=== PATIENT | female | born 2000 | race Caucasian/White ===

== ENCOUNTER 2021-04-02 10:46 | Inpatient (IN) | payer OTHER, SELFPAY ==
[2021-04-02] VITALS (10 sets, daily range): BP systolic 118–135; BP diastolic 78–97; PULSE 112–135; RESP 15–21; TEMP 36.6–37.4; O2SAT 96–100; BMI 25.1; BMI 22.6
--- NOTE | 2021-04-02 10:55 | ED.RN ---
PT REPORTS OF SELF HARM. PT CONFUSED, GIVES ONE WORD ANSWERS, AND THEN CLOSES EYES AND DOES NOT RESPOND. RESPONDS TO NAME CALLING AND STERNAL RUB.
--- NOTE | 2021-04-02 11:10 | EKG12_ITS ---
Test Reason : CONFUSION Blood Pressure : / mmHG Vent. Rate : 115 BPM Atrial Rate : 115 BPM P-R Int : 142 ms QRS Dur : 064 ms QT Int : 346 ms P-R-T Axes : 056 066 007 degrees QTc Int : 478 ms Sinus tachycardia Nonspecific ST abnormality Abnormal ECG Confirmed by MAICO CAPONE, XAVIER ([id number]), map editor MARLENY GAY ([id number]) on 04/05/2021 11:26:05 AM Referred By: SAMMY Confirmed By:XAVIER NINA MD
--- NOTE | 2021-04-02 11:15 | EDS_ITS ---
HPI History of Present Illness Chief Complaint: Confusion Informant: patient and EMS Narrative Narrative: Patient reportedly was found in the bathroom and [facility] by her roommates confused. There was reportedly some shaking activity and they were unsure if this was a potential seizure. Patient is sleepy but will answer some questions at this time. She denies pain at this time. [facility] Medical History Anxiety Back pain Depression Mental health problem Migraine Home Medications albuterol 180 mcg INHALATION Q6H PRN 04/02/21 [History Last Taken Unknown] bupropion HCl [Wellbutrin XL] 150 mg PO DAILY 04/02/21 [History Last Taken Unknown] cyclobenzaprine 5 mg PO TID PRN 04/02/21 [History Last Taken Unknown] doxycycline hyclate 100 mg PO BID 04/02/21 [History Last Taken Unknown] fluoxetine 10 mg PO DAILY 04/02/21 [History Last Taken Unknown] methylphenidate HCl 20 mg PO DAILY 04/02/21 [History Last Taken Unknown] prednisone See Taper PO QODAY 04/02/21 [History Last Taken Unknown] pregabalin 100 mg PO BID 04/02/21 [History Last Taken Unknown] spironolactone 100 mg PO DAILY 04/02/21 [History Last Taken Unknown] Allergy/AdvReac Type Severity Reaction Status Date / Time No Known Allergies Allergy Verified 04/02/21 10:47 Social History Smoking Status: Never smoker ROS ROS ED ROS Narrative Review of systems difficult secondary to patient's mental condition. She denies pain or shortness of breath. Review of Systems ROS Unobtainable: due to mental condition EXAM Physical Exam Const Vital Signs: 04/02/21 10:48 04/02/21 11:57 04/02/21 12:05 Temperature 97.9 F Temperature Source Temporal Pulse Rate 135 H 115 H 117 H Respiratory Rate 18 21 H 16 Blood Pressure 135/94 H 130/97 H 129/94 H Blood Pressure Mean 107 108 105 Pulse Ox 98 99 99 Oxygen Delivery Method Room Air Room Air Room Air Positive well nourished and well developed General Appearance ED: well developed Eyes PERRL and EOMs intact bilaterally Neck no lymphadenopathy and supple Chest Wall inspection of chest normal and palpation of chest normal Resp normal respiratory effort and clear to auscultation bilaterally Cardio regular rhythm Rate: tachycardic GI non-tender Auscultation: hypoactive bowel sounds Palpation: soft Extremity normal to inspection Neuro Sensorium / Orientation: alert Motor Exam: strength 5/5 throughout Skin Skin Narrative: Mild abrasion noted on left knee. MDM MDM MDM Narrative Medical decision making narrative: Lab work, EKG, head CT ordered. Patient given IV fluids and kept on cardiac monitor technician. Shortly after patient's arrival patient's sister who is also a college student arrived at bedside. She brought a bottle of Wellbutrin which has been prescribed to the patient. There were 30 tabs filled on March 22. The bottle was now empty. This was Wellbutrin 150 mg XL tabs. On initial arrival patient had told nursing that she wanted to hurt herself. Lab Data Attestation: I reviewed the patient's lab results. Labs: Laboratory Results - last 24 hr 04/02/21 04/02/21 04/02/21 10:33 10:33 10:33 WBC 16.4 H RBC 4.42 Hgb 13.2 Hct 40.5 MCV 91.6 MCH 29.9 MCHC 32.6 RDW Std Deviation 42.5 RDW Coeff of Lambert 12.8 Plt Count 374 MPV 12.2 H Immature Gran % (Auto) 0.600 Neut % (Auto) 89.1 H Lymph % (Auto) 3.5 L [place] % (Auto) 6.7 Eos % (Auto) 0.0 Baso % (Auto) 0.1 Absolute Neuts (auto) 14.6 H Absolute Lymphs (auto) 0.57 L Nucleated RBC % 0 Sodium 139 Potassium 3.8 Chloride 106 Carbon Dioxide 19.0 L Anion Gap 14 BUN 9 Creatinine 1.11 H Estim Creat Clear Calc 72.14 Est GFR (MDRD) Af Amer 80 Est GFR (MDRD) Non-Af 66 BUN/Creatinine Ratio 8.1 L Glucose 130 H Calcium 9.5 Total Bilirubin 0.30 Direct Bilirubin 0.13 AST 17 ALT 22 Alkaline Phosphatase 61 Total Protein 7.8 Albumin 3.4 Globulin 4.4 H Serum , Qual Ur Drug Screen Comment Ethyl Alcohol 7.0 04/02/21 04/02/21 10:33 11:52 WBC RBC Hgb Hct MCV MCH MCHC RDW Std Deviation RDW Coeff of Lambert Plt Count MPV Immature Gran % (Auto) Neut % (Auto) Lymph % (Auto) [place] % (Auto) Eos % (Auto) Baso % (Auto) Absolute Neuts (auto) Absolute Lymphs (auto) Nucleated RBC % Sodium Potassium Chloride Carbon Dioxide Anion Gap BUN Creatinine Estim Creat Clear Calc Est GFR (MDRD) Af Amer Est GFR (MDRD) Non-Af BUN/Creatinine Ratio Glucose Calcium Total Bilirubin Direct Bilirubin AST ALT Alkaline Phosphatase Total Protein Albumin Globulin Serum , Qual NEGATIVE Ur Drug Screen Comment Ethyl Alcohol Radiography Diagnostic Testing: Clinical Impression(s) from Imaging Studies Brain CT 04/02/21 11:35 IMPRESSION: Normal unenhanced CT scan of the brain. Electronically Signed: Ifeanyi Wallace MD at 11:51 EST , Service support , EKG Initial EKG: Attestation: I personally reviewed and interpreted this EKG as follows: Interpretation: Sinus Tachycardia (Sinus tach at 115. QTc 478.) Treatment and Re-Evaluation Comments:: On repeat examination patient sitting upright in bed. She is more alert than previous exam, however still has slurred speech. Patient does admit to taking Wellbutrin but does not remember when she took the tabs. When asked if this was an attempt to hurt herself she shrugged her shoulders. Test results discussed with patient and sister at bedside. I advised that with her taking the extended release tabs she would need to be monitored for 24 hours for potential seizures. Lyleter is currently at bedside. I will speak with hospitalist for admission. Discharge Plan Triage Chief Complaint: Confusion ED Provider: Marita Bashir Dx/Rx/DC Orders Clinical Impression: Overdose Prescriptions: No Action spironolactone 25 mg Tablet 100 mg PO DAILY RF: 0 prednisone 10 mg Tablets,Dose Pack See Taper mg PO QODAY RF: 0 cyclobenzaprine 5 mg Tablet 5 mg PO TID PRN (Reason: Spasms) RF: 0 bupropion HCl [Wellbutrin XL] 150 mg Tablet Extended Release 24 Hr 150 mg PO DAILY RF: 0 doxycycline hyclate 100 mg Capsule 100 mg PO BID RF: 0 fluoxetine 10 mg Capsule 10 mg PO DAILY RF: 0 methylphenidate HCl 20 mg Capsule,Er Biphasic 50-50 20 mg PO DAILY RF: 0 pregabalin 100 mg Capsule 100 mg PO BID RF: 0 albuterol 90 mcg/actuation Aerosol 180 mcg INHALATION Q6H PRN (Reason: Shortness Of Breath) RF: 0 Primary Care Provider: Prakash Franklin Referrals: Prakash Franklin MD [Primary Care Provider] - Disposition Disposition: Acute Care Hospital [facility]
[2021-04-02 11:25] LABS: Absolute Lymphocyte Count 0.57 X10^3/uL (0.83-4.51); Absolute Neutrophil Count 14.6 X10^3/uL (2.0-7.7); Basophil# 0.01 X10^3/uL; Basophil% 0.1 % (0-1); Hematocrit 40.5 % (37-47); Hemoglobin 13.2 g/dL (12.0-15.0); Lymphocyte # 0.57 X10^3/ul (0.83-4.51); Lymphocyte % 3.5 % (19-41); Mean Corp Hgb Conc 32.6 g/dL (32-36); Mean Corpuscular Hgb 29.9 pg (27.0-32.0); Mean Corpuscular Volume 91.6 fL (81-99); Mean Platelet Vol. 12.2 fl (6.2-12.0); Monocyte% 6.7 % (0-10); NRBC Flagged by Analyzer 0 % (0-5); Neutrophil # 14.62 X10^3/uL (2.7-7.7); Neutrophil % 89.1 % (47-70); POSITIVE DIFFERENTIAL YES; Platelet Count 374 K/mm3 (150-450); RBC Distribution Width CV 12.8 % (11.6-14.6); RBC Distribution Width SD 42.5 fl (35.1-43.9); Red Blood Count 4.42 M/mm3 (4.2-5.4); White Blood Count 16.4 K/mm3 (4.4-11.0)
[2021-04-02 11:27] LABS: Differential Indicated SCAN CRITERIA MET; Internal QC Validated? YES +Cl - CLEAR BKGD; Pregnancy, Serum, hCG Quali. NEGATIVE Negative
--- NOTE | 2021-04-02 11:31 | ED.RN ---
SISTER OF PT AT BEDSIDE REPORTS PT TAKES WELLBUTRIN FOR MENTAL HEALTH AND THAT THE BOTTLE SHE HAD FILLED 03/22/[address] OCONNOR INFORMED.
[2021-04-02 11:33] LABS: AST(SGOT) 17 U/L (15-37); Alanine Aminotransfer ALT/SGPT 22 U/L (13-56); Albumin, Serum 3.4 g/dL (3.2-5.0); Alkaline Phosphatase 61 U/L (45-117); Anion Gap 14 (5-15); BUN 9 mg/dL (7-18); BUN/Creat Ratio 8.1 RATIO (10-20); Bilirubin, Direct 0.13 mg/dL (0.00-0.30); Calcium,Total 9.5 mg/dL (8.5-10.1); Chloride 106 mmol/L (98-107); Creatinine, Serum 1.11 mg/dL (0.55-1.02); EST Glomerular Filtration Rate 66 mL/min (>60); Est Glom Filt Rate - Afr Amer 80 mL/min (>60); Estimated Creatinine Clearance 72.14 ml/min; Globulin 4.4 g/dL (2.2-4.2); Glucose 130 mg/dL (74-106); Potassium 3.8 mmol/L (3.5-5.1); Protein, Total 7.8 g/dL (6.4-8.2); Sodium Level 139 mmol/L (136-145)
[2021-04-02] MEDS: 0.9% Normal Saline 1,000 ML 150 ML IV ×2 (11:34→18:19)
--- NOTE | 2021-04-02 11:35 | CT_ITS ---
STUDY: CT BRAIN WITHOUT CONTRAST REASON FOR EXAM: Female, 21 years old. Confusion RADIATION DOSAGE (If Supplied By Facility): CTDIvol = ( 44.99 ) mGy, DLP = ( 812.98 ) mGycm TECHNIQUE: Transaxial CT imaging of the brain was performed without administration of intravenous contrast material. Individualized dose optimization techniques were used for this CT. COMPARISON: No relevant priors. FINDINGS: Normal soft tissue structures. Normal calvarium. Normal size ventricles and extra-axial spaces for the patient''s age. Normal white matter tracts of the cerebral hemispheres. Normal basal ganglia and thalami. Normal brainstem. Normal cerebellum. There is no intracranial hemorrhage. There are no findings of an acute ischemic infarction. Normal visualized paranasal sinuses. CT/Brain/Head without Contrast IMPRESSION: Normal unenhanced CT scan of the brain. Electronically Signed: Ifeanyi Wallace MD at 11:51 EST , Service support ,
--- NOTE | 2021-04-02 11:49 | CM.ED ---
Addendum entered by Zulma Miramontes 04/02/21 13:52: ROXANNE had difficulty interviewing patient as she was difficult to understand and when asked to clarify appeared agitated. ROXANNE made referral to [facility] for inpatient psych. ROXANNE faxed referral to [facility] Addendum entered by Zulma Miramontes 04/02/21 12:39: SW attempted to speak to patient. Patient was asked what brought her to the hospital. Patient mumbled and this typewriter operator automatic could not understand. Sister appeared to understand and said patient reported bad day and things kept happening. ROXANNE then asked if patient wanted to and she said yes. SW will remain available Zulma BRANDON Original Note: ROXANNE Note ROXANNE was updated by EDITH Alarcon that patient overdosed on Wellbutrin. Patient was in CT but patient's sister, Aubrie, was in the room. Aubrie reports that she got a phone call this morning from the roommates advising of patient's current condition. Aubrie said that patient has been suicidal for a few weeks. She has a therapist via telehealth. Aubrie reports that patient is not giving away items, not researching ways to harm herself or voicing a plan for SI. Aubrie reports no previous psych hospitalization. Aubrie started Wellbutrin the beginning of March as her previous medications weren't working. Prior to that patient was on Prozac. Aubrie reports she is not aware of previous OD. 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 Aubrie reports that patient's coping skills are hanging with friends. Aubrie said that she is not aware of any triggers. Aubrie said that she is aware that patient called her friend last nigh but the friend did not answer. Aubrie reports patient is diagnosed with depression and anxiety. Patient's current medication included Flexeril 5mg 3 times a day, Wellbutrin 150 mg 1x day, Vibra tabs 1 tab, Pregabalin 100 1 cap 2x/day, Prednisone 10 mg, inhaler and over the counter Mucinex cough syrup. Aubrie said that patient had a cough recently. Aubrie said that patient's previous medication was Fluoxetine 10 mg. Zulma BRANDON
[2021-04-02 11:58] LABS: Bacteria 0 SEEN /hpf (None Seen); Mucous, Urine 0 SEEN /hpf (<or=2+); Red Blood Cells-Urine 0 SEEN /hpf (0-5); White Blood Cells 0 SEEN /hpf (0-5)
[2021-04-02 12:11] LABS: Color, Urine Yellow (Yellow); Glucose, Dipstick Normal (Normal); Ketone-Dipstick 5 mg/dl (Negative); Leukocyte Esterase-Dipstick Negative /ul (Negative); Nitrite-Dipstick Negative (Negative); Occult Blood-Urine Negative /ul (Negative); Protein-Dipstick Negative (Negative); Specific Gravity, Urine 1.015 (1.002-1.030); Urine Bilirubin Dipstick Negative (Negative); Urine Clarity Sl. Cloudy (Clear); Urine Urobilinogen Normal (Normal); Urine pH 6.5 (5.0 - 8.0)
[2021-04-02 12:19] LABS: Squamous Epithelial Cells - UA 0-5 SEEN /hpf (5-10)
[2021-04-02 12:28] LABS: Amphetamine Urine VISTA NEGATIVE (<1000 ng/mL); Barbiturate Urine VISTA NEGATIVE (< 200 ng/mL); Benzodiazepine Urine VISTA NEGATIVE (< 200 ng/mL); Cocaine Urine VISTA NEGATIVE (< 300 ng/mL); Ecstacy Urine VISTA POSITIVE (< 500 ng/mL); Methadone Urine VISTA NEGATIVE (< 300 ng/mL); PCP Urine VISTA NEGATIVE (< 25 ng/mL); THC Urine VISTA NEGATIVE (< 50 ng/mL); Vista UDS pH Range 6
--- NOTE | 2021-04-02 14:20 | CM.ED ---
SW Note SW met with patient, her sister and patient's sister got the mother on the phone. Mother said that she is POA. Mother reports that patient has a psychiatrist, Dr. Homa Daly and a therapist (name unknown). Mother said that she called the roommates and they reported that patient was found in the bathroom incoherent and not able to stand. SW updated patient, sister and mother that due to patient's statements to RN and MD after patient is medically cleared she will need to go to a psych hospital. Patient continues to be difficult to understand thus SW did not proceed with interview. RN who took patient to PCU noted that patient was difficult to understand. SW called [facility]. They got referral for patient. They feel that patient is appropriate for their setting. Staff has not staffed it with the MD but will and then call this staff writer back. Plan: Inpatient psych [facility] BRAND[facility]
--- NOTE | 2021-04-02 15:23 | HP.PCM.HOS_ITS ---
Documented by User: Sj JOSHI 04/02/21 15:47 HPI - General General Date of Admission: 04/02/21 HPI Narrative CAR CINTRON is a 21-year-old female who presents to the ED at [facility] on 04/02/2021 after being found in the bathroom at the [facility] by roommates acutely confused and with shaking. History was obtained from family and ED physician's note, as patient is acutely confused and incoherent. Of note, patient was found with a prescription of Wellbutrin 150 mg tablets that was filled with 30 tablets on March 22, and is now empty. On arrival patient told ED nurses that she wanted to hurt her self, patient denies wanting to hurt her self now. Vital signs obtained in the ED are temperature of 98.2 ?F, BP of 132/96, HR 112, RR 16 and is currently satting 100% on room air. CBC does demonstrate a leukocytosis of 16,000, but is otherwise unremarkable. Creatinine slightly elevated at 1.1, otherwise unremarkable. UA is unremarkable. Urine tox screen is positive for MDMA only. Ethyl alcohol 7.0. Brain CT obtained in the ED was unremarkable. [facility] Medical History (Updated 04/02/21 @ 15:33 by Sj JOSHI) Anxiety Back pain Depression Mental health problem Migraine Neuropathy Syrinx of spinal cord Home Medications albuterol 180 mcg INHALATION Q6H PRN 04/02/21 [History Last Taken Unknown] bupropion HCl [Wellbutrin XL] 150 mg PO DAILY 04/02/21 [History Last Taken Unknown] cyclobenzaprine 5 mg PO TID PRN 04/02/21 [History Last Taken Unknown] doxycycline hyclate 100 mg PO BID 04/02/21 [History Last Taken Unknown] methylphenidate HCl 20 mg PO DAILY 04/02/21 [History Last Taken Unknown] prednisone See Taper PO QODAY 04/02/21 [History Last Taken Unknown] pregabalin 100 mg PO BID 04/02/21 [History Last Taken Unknown] spironolactone 100 mg PO DAILY 04/02/21 [History Last Taken Unknown] Allergy/AdvReac Type Severity Reaction Status Date / Time No Known Allergies Allergy Verified 04/02/21 10:47 Family History (Updated 04/02/21 @ 15:34 by Sj JOSHI) Father No problems noted. Mother No problems noted. Social History (Updated 04/02/21 @ 15:36 by Sj JOSHI) Smoking Status: Never smoker alcohol intake: current alcohol intake frequency: a few times a week Alcohol type: wine and hard liquor substance use type: does not use ROS Review of Systems ROS Unobtainable: due to encephalopathy and due to mental status Vital Signs Vital Signs Vital Signs: 04/02/21 10:48 04/02/21 11:57 04/02/21 12:05 Temperature 97.9 F Temperature Source Temporal Pulse Rate 135 H 115 H 117 H Respiratory Rate 18 21 H 16 Blood Pressure 135/94 H 130/97 H 129/94 H Blood Pressure Mean 107 108 105 Blood Pressure Source Blood Pressure Position Blood Pressure Location Pulse Ox 98 99 99 Oxygen Delivery Method Room Air Room Air Room Air 04/02/21 12:56 04/02/21 14:30 Temperature 97.9 F 98.2 F Temperature Source Temporal Oral Pulse Rate 114 H 112 H Respiratory Rate 15 16 Blood Pressure 118/84 H 132/96 H Blood Pressure Mean 95 108 Blood Pressure Source Monitor Blood Pressure Position Semi-Fowlers Blood Pressure Location Left Arm Pulse Ox 100 100 Oxygen Delivery Method Room Air Room Air Weight Weight: 148 lb 12.992 oz Body Mass Index (BMI) 22.6 Physical Exam Const alert and no apparent distress Constitutional Narrative: Alert and oriented to self, acutely confused due to Wellbutrin overdose. General Appearance: cooperative HEENT normocephalic, head/scalp atraumatic and hearing grossly normal bilaterally Eyes PERRL, EOMs intact bilaterally and conjunctivae normal Neck no lymphadenopathy, supple and no JVD Resp normal respiratory effort, no retractions, no use of accessory muscles and clear to auscultation bilaterally Cardio no murmurs and no JVD Rate: tachycardic GI normal to inspection, nondistended, normoactive bowel sounds, soft to palpation and non-tender Extremity normal to inspection, full ROM and no clubbing, cyanosis or edema Skin no rashes or lesions noted, no wounds, skin turgor normal and no jaundice Neuro CN's II-XII intact bilaterally Psych affect normal Results Lab / Micro Data Result Diagrams: 04/02/21 10:33 04/02/21 10:33 Labs: Laboratory Results - last 24 hr 04/02/21 10:33: WBC 16.4 H, RBC 4.42, Hgb 13.2, Hct 40.5, MCV 91.6, MCH 29.9, MCHC 32.6, RDW Std Deviation 42.5, RDW Coeff of Lambert 12.8, Plt Count 374, MPV 12.2 H, Immature Gran % (Auto) 0.600, Neut % (Auto) 89.1 H, Lymph % (Auto) 3.5 L , [place] % (Auto) 6.7, Eos % (Auto) 0.0, Baso % (Auto) 0.1, Absolute Neuts (auto) 14.6 H, Absolute Lymphs (auto) 0.57 L, Nucleated RBC % 0 04/02/21 10:33: Sodium 139, Potassium 3.8, Chloride 106, Carbon Dioxide 19.0 L, Anion Gap 14, BUN 9, Creatinine 1.11 H, Estim Creat Clear Calc 72.14, Est GFR (MDRD) Af Amer 80, Est GFR (MDRD) Non-Af 66, BUN/Creatinine Ratio 8.1 L, Glucose 130 H, Calcium 9.5, Total Bilirubin 0.30, Direct Bilirubin 0.13, AST 17, ALT 22, Alkaline Phosphatase 61, Total Protein 7.8, Albumin 3.4, Globulin 4.4 H 04/02/21 10:33: Ethyl Alcohol 7.0 04/02/21 10:33: Serum , Qual NEGATIVE 04/02/21 11:52: Urine Color Yellow, Urine Clarity Sl. Cloudy, Urine pH 6.5, Ur Specific [place] 1.015, Urine Protein Negative, Urine Glucose (UA) Normal, Urine Ketones 5 H, Urine Occult Blood Negative, Urine Nitrite Negative, Urine Bi lirubin Negative, Urine Urobilinogen Normal, Ur Leukocyte Esterase Negative, Urine RBC 0 SEEN, Urine WBC 0 SEEN, Ur Squamous Epith Cells 0-5 SEEN, Urine Bacteria 0 SEEN, Urine Mucus 0 SEEN 04/02/21 11:52: Urine Opiates Screen NEGATIVE, Urine Methadone Screen NEGATIVE, Ur Barbiturates Screen NEGATIVE, Ur Phencyclidine Scrn NEGATIVE, Ur Amphetamines Screen NEGATIVE, U Methamphetamin-MDMA POSITIVE H, U Benzodiazepines Scrn NEGATIVE, Urine Cocaine Screen NEGATIVE, U Cannabinoids Screen NEGATIVE, Ur Drug Screen Comment Micro: Microbiology 04/02/21 11:25 Nasal Secretion SARS-CoV-2 Antigen (Rapid) - Final Radiology Impression Brain CT 04/02/21 11:35 IMPRESSION: Normal unenhanced CT scan of the brain. Electronically Signed: Ifeanyi Wallace MD at 11:51 EST , Service support , Assessment & Plan Assessment/Plan (1) Overdose: PLAN: Patient is a 21-year-old female who presents the ED at [facility] on 04/02/2021 with a chief complaint of Wellbutrin overdose. Patient will be admitted for medical stabilization and awaiting transfer to inpatient psychiatric facility. 1) overdose Patient was found by her roommate on the floor shaking and presented to the ED with a bottle of Wellbutrin that was prescribed on 22 March and is now empty. It is suspected that patient ingested all the pills in the bottle in an attempt to overdose. Patient did voice to the nurses in the ED that she wished to herself, however denies any thoughts of hurting herself now. It is difficult to assess patient status as she is acutely confused and slightly sedated secondary to overdose. Vital signs are tachycardic, otherwise stable. CBC and BMP are unremarkable. UA is unremarkable. Urine tox being positive for MDMA, other substances negative. Brain CT unremarkable. Plan; admit to PCU for cardiac monitoring, referral to inpatient psychiatric facility initiated in the ED, CBC and CMP in a.m., magnesium ordered, twelve-lead EKG ordered, as needed medications ordered, case management following, hold home Wellbutrin and other antidepressants. 2) tachycardia Likely reactionary secondary to overdose, admit to PCU for cardiac telemetry monitoring, EKG ordered, magnesium level ordered. DVT prophylaxis - not indicated Patient seen by Sj Lynn PA-C, under the supervision of Dr. Myers. Documented by User: Dr. Siri Myers MD 04/02/21 18:36 HPI - General General Date of Admission: 04/02/21 [facility] Medical History (Updated 04/02/21 @ 15:33 by Sj JOSHI) Anxiety Back pain Depression Mental health problem Migraine Neuropathy Syrinx of spinal cord Home Medications albuterol 180 mcg INHALATION Q6H PRN 04/02/21 [History Last Taken Unknown] bupropion HCl [Wellbutrin XL] 150 mg PO DAILY 04/02/21 [History Last Taken Unknown] cyclobenzaprine 5 mg PO TID PRN 04/02/21 [History Last Taken Unknown] doxycycline hyclate 100 mg PO BID 04/02/21 [History Last Taken Unknown] methylphenidate HCl 20 mg PO DAILY 04/02/21 [History Last Taken Unknown] prednisone See Taper PO QODAY 04/02/21 [History Last Taken Unknown] pregabalin 100 mg PO BID 04/02/21 [History Last Taken Unknown] spironolactone 100 mg PO DAILY 04/02/21 [History Last Taken Unknown] Allergy/AdvReac Type Severity Reaction Status Date / Time No Known Allergies Allergy Verified 04/02/21 10:47 Family History (Updated 04/02/21 @ 15:34 by Sj JOSHI) Father No problems noted. Mother No problems noted. Social History (Updated 04/02/21 @ 15:36 by Sj JOSHI) Smoking Status: Never smoker alcohol intake: current alcohol intake frequency: a few times a week Alcohol type: wine and hard liquor substance use type: does not use Results Lab / Micro Data Result Diagrams: 04/02/21 10:33 04/02/21 10:33 Charges/Coding Addendum Addendum: This patient was seen in conjunction with MADELYN Reno. I have independently interviewed and examined the patient and reviewed pertinent historical, laboratory, and other data. Please refer to MADELYN Reno's note for his patient's presentation, findings, and recommendations. I have reviewed and his note and concur with his documentation 21-year-old female who was brought in confused and shaking and found to have an empty bupropion bottle. Patient has a history of suicidal ideation. She stated that she did not want to hurt herself. She usually follows up with a counselor. She has history of schizophrenia according to the sister at bedside. The time of being seen, patient is actively hallucinating; visual and auditory Sister denies that patient is on any chronic psych medications Physical Exam: Gen: Appears anxious, not pale, not jaundiced CVS:HS I +II, regular, no murmurs RESP: Diminished at lung bases GI: BS present and normal, soft, nontender, no palpable organs EXT:No edema ASSESSMENT: 1. Acute toxic encephalopathy 2. Bupropion overdose 3. Acute psychosis in a patient with underlying history of schizophrenia Plan: Admit to PCU for monitoring Repeat EKG to monitor QTC Seizure precaution IV Ativan as needed Sitter at bedside Crisis consult when stable Visit Charges Inpatient E&M: 33102 Init Hosp L3
--- NOTE | 2021-04-02 15:25 | EKG12_ITS ---
Test Reason : QT SHORTENING Blood Pressure : / mmHG Vent. Rate : 110 BPM Atrial Rate : 110 BPM P-R Int : 116 ms QRS Dur : 076 ms QT Int : 350 ms P-R-T Axes : 059 050 014 degrees QTc Int : 473 ms Sinus tachycardia Otherwise normal ECG When compared with ECG of 03-APR-2021 10:17, MANUAL COMPARISON REQUIRED, DATA IS UNCONFIRMED Confirmed by MAICO CAPONE, XAVIER ([id number]), assistant editor MARLENY GAY ([id number]) on 04/06/2021 11:27:20 AM Referred By: RYLEE Confirmed By:XAVIER NINA MD
[2021-04-02 16:42] LABS: Magnesium 2.4 mg/dL (1.6-2.6)
--- NOTE | 2021-04-02 16:44 | CM.ED ---
ROXANNE Note SW went to patient's room. Patient and her sister were in the room. Mother is 2 hours away. ROXANNE introduced self again. ROXANNE advised patient got medication beginning on the and there were no pills in the bottle when she came to the ED so we suspect she ingested 18-19 pills. SW asked when she last took her pills and said was it yesterday or today and patient said neither of those days and then talked about the backyard. Sister asked patient if she knew where she was and she said no. ROXANNE provided pamphlet on [facility]. Plan: Inpatient psych Zulma BRANDON
[2021-04-02] MEDS: 0.9% Saline Lock 10 ML Syringe IV (19:08)
[2021-04-02] MEDS: LORazepam 2 MG/ML Syringe IV (19:08)
[2021-04-03] VITALS (8 sets, daily range): BP systolic 113–130; BP diastolic 82–85; PULSE 91–117; RESP 16–18; TEMP 36.7–37.1; O2SAT 98–100
--- NOTE | 2021-04-03 01:17 | NURSING ---
23:30 RESPIRATORY CARE PRACTITIONER put patient on the bedpan and no urination mother at bedside. 00:15 Mother notified this nurse that patient has not urinated for 12 hours now. So this nurse and the RESPIRATORY CARE PRACTITIONER tried assisting patient to the BSC a couple of times before actually being able to get patient to stand. Once we were able to get patient to stand she would not bend her knees to seat on the BSC. The nurse and fiber drier operator were able to get patient back in the bed and at 00:35 I bladder scanned patient for 857 and explained this to mother while at bedside. I explained that I could get a order to straight cath patient but mother stated, patient has had trauma and would not like to cause anymore trauma straight cath her at this time. Per mother IV fluids on hold and will continue to monitor patient. steel division supervisor Sima was at the bedside while trying some of these interventions to get patient to urinate and explaining to straight cath or allow patient to natural urinate on her own. Mother at patient bedside with lights off at this time.
--- NOTE | 2021-04-03 02:35 | PCS.PANDOC ---
PANDEMIC DOCUMENTATION INITIATED: Date: 01/04/2021 Time: 190
[2021-04-03] MEDS: 0.9% Normal Saline 1,000 ML 150 ML IV ×2 (04:06→13:44)
--- NOTE | 2021-04-03 04:26 | NURSING ---
4:00 This asked patient if she had to urinate patient stated,yes. The sitter and I assisted patient from bed to the toilet and patient sat on the toilet with one crossed under buttock. Patient sat on the toilet and did not urinated at this time. Will try again in about an hour to see if patient would like to get up and urinate again. Mother by patient side while attempting to get patient to urinate.
--- NOTE | 2021-04-03 05:58 | NURSING ---
5:15 Nurse, sitter, and mom assisted patient to the toilet and patient did urinate a large amount. Patient was wiped with wipes and gown and pants were put on during this time. Patient back in bed resting with mom at bedside.
--- NOTE | 2021-04-03 08:22 | EKG12_ITS ---
Test Reason : TACHYCARDIA/ROUTINE Blood Pressure : / mmHG Vent. Rate : 118 BPM Atrial Rate : 118 BPM P-R Int : 130 ms QRS Dur : 072 ms QT Int : 342 ms P-R-T Axes : 057 041 016 degrees QTc Int : 479 ms Sinus tachycardia Otherwise normal ECG When compared with ECG of 02-APR-2021 15:43, MANUAL COMPARISON REQUIRED, DATA IS UNCONFIRMED Confirmed by MAICO CAPONE, XAVIER ([id number]), content editor MARLENY GAY ([id number]) on 04/06/2021 11:28:01 AM Referred By: RYLEE Confirmed By:XAIVER NINA MD
[2021-04-03 08:44] LABS: Absolute Lymphocyte Count 1.15 X10^3/uL (0.83-4.51); Absolute Neutrophil Count 8.7 X10^3/uL (2.0-7.7); Basophil# 0.03 X10^3/uL; Basophil% 0.3 % (0-1); Eosinophil# 0.01 X10^3/uL; Eosinophils% 0.1 % (0-5); Hematocrit 35.3 % (37-47); Hemoglobin 11.5 g/dL (12.0-15.0); Lymphocyte # 1.15 X10^3/ul (0.83-4.51); Lymphocyte % 10.6 % (19-41); Mean Corp Hgb Conc 32.6 g/dL (32-36); Mean Corpuscular Hgb 30.1 pg (27.0-32.0); Mean Corpuscular Volume 92.4 fL (81-99); Mean Platelet Vol. 11.7 fl (6.2-12.0); Monocyte# 0.87 X10^3/uL; NRBC Flagged by Analyzer 0 % (0-5); Neutrophil # 8.72 X10^3/uL (2.7-7.7); Neutrophil % 80.6 % (47-70); Platelet Count 295 K/mm3 (150-450); RBC Distribution Width SD 43.5 fl (35.1-43.9); Red Blood Count 3.82 M/mm3 (4.2-5.4); White Blood Count 10.8 K/mm3 (4.4-11.0)
[2021-04-03 09:11] LABS: ALB/GLOB Ratio 0.8 RATIO (0.9-2.4); AST(SGOT) 20 U/L (15-37); Alanine Aminotransfer ALT/SGPT 20 U/L (13-56); Albumin, Serum 2.8 g/dL (3.2-5.0); Alkaline Phosphatase 48 U/L (45-117); Anion Gap 3 (5-15); BUN 6 mg/dL (7-18); BUN/Creat Ratio 8.6 RATIO (10-20); Calcium,Total 8.7 mg/dL (8.5-10.1); Chloride 109 mmol/L (98-107); EST Glomerular Filtration Rate 112 mL/min (>60); Est Glom Filt Rate - Afr Amer 136 mL/min (>60); Estimated Creatinine Clearance 128.24 ml/min; Globulin 3.7 g/dL (2.2-4.2); Glucose 98 mg/dL (74-106); Protein, Total 6.5 g/dL (6.4-8.2); Sodium Level 138 mmol/L (136-145)
[2021-04-03] MEDS: LORazepam 2 MG/ML Syringe IV (10:59)
--- NOTE | 2021-04-03 11:00 | NURSING ---
ativan 2mg given, sister at bedside and aware of medication administration, sister states she will relay medication administration to mother who is at work.
[2021-04-03] MEDS: Ziprasidone HCl 20 MG Capsule PO (13:02)
--- NOTE | 2021-04-03 13:05 | NURSING ---
Kim 20mg x1 given, sister at bedside and aware, will relay information to mother who is at work.
--- NOTE | 2021-04-03 13:28 | PCM.DC ---
Discharge Instructions Diet Discharge Diet: No restrictions Activity Discharge Activity: Return to Normal Activity Weight Bearing Status: Weight bearing as tolerated Dressing / Incision Call your doctor if you observe: Fever of 101 or Higher, Numbness or Tingling, Shortness of breath, Dizziness, Chest pain, Increased palpitations (irregular heartbeat) and Calf discomfort Follow Up Care Please Follow Up With: Primary care provider When: Within the next two weeks. Test Results: Test results from this visit will be discussed in further detail at your follow-up appointment, if applicable. Discharge Plan Admission Admit Date/Time: 04/02/21 12:29 Primary Reason for Your Visit: Wellbutrin overdose. Attending Provider: Siri Myers Primary Care Provider: Prakash Franklin Discharge Orders/Prescriptions Prescriptions: Continued spironolactone 25 mg Tablet 100 mg PO DAILY RF: 0 prednisone 10 mg Tablets,Dose Pack See Taper mg PO QODAY RF: 0 cyclobenzaprine 5 mg Tablet 5 mg PO TID PRN (Reason: Spasms) RF: 0 doxycycline hyclate 100 mg Capsule 100 mg PO BID RF: 0 methylphenidate HCl 20 mg Capsule,Er Biphasic 50-50 20 mg PO DAILY RF: 0 pregabalin 100 mg Capsule 100 mg PO BID RF: 0 albuterol 90 mcg/actuation Aerosol 180 mcg INHALATION Q6H PRN (Reason: Shortness Of Breath) RF: 0 Discontinued bupropion HCl [Wellbutrin XL] 150 mg Tablet Extended Release 24 Hr 150 mg PO DAILY RF: 0 Referrals / Follow Up: Prakash Franklin MD [Primary Care Provider] - Disposition Disposition (needs filled in before D/C Order can be placed): Psychiatric Hospital or Unit
--- NOTE | 2021-04-03 13:30 | DS.PCM_ITS ---
Documented by User: Sj JOSHI 04/03/21 13:43 Providers Date of Admission: 04/02/21 Primary Care Physician: Dr. Prakash Franklin MD Reason For Visit: OVERDOSE Diagnosis Discharge Diagnosis (1) Overdose: Status: Acute Code(s): T50.901A - Poisoning by unspecified drugs, medicaments and biological substances, accidental (unintentional), initial encounter Medications at Discharge Home Medications albuterol 180 mcg INHALATION Q6H PRN 04/02/21 cyclobenzaprine 5 mg PO TID PRN 04/02/21 doxycycline hyclate 100 mg PO BID 04/02/21 methylphenidate HCl 20 mg PO DAILY 04/02/21 prednisone See Taper PO QODAY 04/02/21 pregabalin 100 mg PO BID 04/02/21 spironolactone 100 mg PO DAILY 04/02/21 Hospital Course Summary of Care Provided Minutes Spent on Discharge: 35 Hospital Course: Disposition: Patient to discharge to inpatient psychiatric facility for ongoing psychiatric care. 1) overdose Patient was admitted to the ED at [facility] on 04/02/2021 after ingesting an entire bottle of Wellbutrin, which was prescribed to her. Patient was observed in the inpatient unit of [facility] for 24 hours and has been medically stable, although has been experiencing ongoing visual hallucinations as well as agitated behavior. On admission patient voiced to nursing staff that she did have desires of hurting herself, although denies making such comments now. Given concern for patient capacity for self harm patient was pink slipped and family was informed that she will be transferred to an inpatient psychiatric unit for ongoing care. Patient's family, to include mother and her sister have been well informed throughout the admission, although seemed displeased with the current course. Family was advised that the hospital staff cannot discharge her into their care given patient's capacity for self harm and ongoing psychiatric distress. 2) tachycardia Secondary to overdose and agitation. Patient denies any chest pain and other vital signs have been stable throughout admission. Patient is medically stable for transfer to inpatient psychiatric facility. Patient seen by Sj Lynn PA-C, under the supervision of Dr. Myers. Physical Exam Narrative Patient is a 21-year-old female lying in bed, only alert and oriented to self. Patient is still experiencing ongoing visual hallucinations and agitation, however does not appear to be in any acute medical distress. Is stable for transport to psychiatric facility. Const alert Exam Limitations: altered mental status HEENT normocephalic, head/scalp atraumatic and hearing grossly normal bilaterally Eyes PERRL and conjunctivae normal Neck no lymphadenopathy, supple and no JVD Resp normal respiratory effort, no retractions and no use of accessory muscles Cardio regular rhythm, no murmurs and no JVD Rate: tachycardic GI normal to inspection, nondistended, normoactive bowel sounds, soft to palpation and non-tender Extremity normal to inspection, full ROM and no clubbing, cyanosis or edema Skin no rashes or lesions noted, no wounds and skin turgor normal Neuro CN's II-XII intact bilaterally Psych affect normal Weight / BMI Weight Weight: 148 lb 12.992 oz Body Mass Index (BMI) 22.6 ABG / Lab / Microbiology Data Result Diagrams: 04/03/21 08:33 04/03/21 08:33 Laboratory: Laboratory Results - last 24 hr 04/02/21 10:33: Magnesium 2.4 04/03/21 08:33: WBC 10.8, RBC 3.82 L, Hgb 11.5 L, Hct 35.3 L, MCV 92.4, MCH 30.1, MCHC 32.6, RDW Std Deviation 43.5, RDW Coeff of Lambert 13.0, Plt Count 295, MPV 11.7, Immature Gran % (Auto) 0.400, Neut % (Auto) 80.6 H, Lymph % (Auto) 10.6 L, [place] % (Auto) 8.0, Eos % (Auto) 0.1, Baso % (Auto) 0.3, Absolute Neuts (auto) 8.7 H, Absolute Lymphs (auto) 1.15, Nucleated RBC % 0 04/03/21 08:33: Sodium 138, Potassium 4.0, Chloride 109 H, Carbon Dioxide 26.0, Anion Gap 3 L, BUN 6 L, Creatinine 0.70, Estim Creat Clear Calc 128.24, Est GFR (MDRD) Af Amer 136, Est GFR (MDRD) Non-Af 112, BUN/Creatinine Ratio 8.6 L, Glucose 98, Calcium 8.7, Total Bilirubin 0.60, AST 20, ALT 20, Alkaline Phosphatase 48, Total Protein 6.5, Albumin 2.8 L, Globulin 3.7, Albumin/Globulin Ratio 0.8 L Microbiology: Microbiology 04/02/21 11:25 Nasal Secretion SARS-CoV-2 Antigen (Rapid) - Final D/C Instructions Discharge Diet: No restrictions Weight Bearing Status: Weight bearing as tolerated Call your doctor if you observe: Fever of 101 or Higher, Numbness or Tingling, Shortness of breath, Dizziness, Chest pain, Increased palpitations (irregular heartbeat) and Calf discomfort Please Follow Up With: Primary care provider When: Within the next two weeks. Meaningful Use Info Meaningful Use Diagnoses (Choose all that apply): None applicable Discharge Plan Admission Admit Date/Time: 04/02/21 12:29 Primary Reason for Your Visit: Wellbutrin overdose. Attending Provider: Siri Myers Primary Care Provider: Prakash Franklin Discharge Orders/Prescriptions Prescriptions: Continued spironolactone 25 mg Tablet 100 mg PO DAILY RF: 0 prednisone 10 mg Tablets,Dose Pack See Taper mg PO QODAY RF: 0 cyclobenzaprine 5 mg Tablet 5 mg PO TID PRN (Reason: Spasms) RF: 0 doxycycline hyclate 100 mg Capsule 100 mg PO BID RF: 0 methylphenidate HCl 20 mg Capsule,Er Biphasic 50-50 20 mg PO DAILY RF: 0 pregabalin 100 mg Capsule 100 mg PO BID RF: 0 albuterol 90 mcg/actuation Aerosol 180 mcg INHALATION Q6H PRN (Reason: Shortness Of Breath) RF: 0 Discontinued bupropion HCl [Wellbutrin XL] 150 mg Tablet Extended Release 24 Hr 150 mg PO DAILY RF: 0 Referrals / Follow Up: Prakash Franklin MD [Primary Care Provider] - Disposition Disposition (needs filled in before D/C Order can be placed): Psychiatric Hospital or Unit Documented by User: Dr. Siri Myers MD 04/03/21 16:39 Providers Date of Admission: 04/02/21 Reason For Visit: OVERDOSE Medications at Discharge Home Medications albuterol 180 mcg INHALATION Q6H PRN 04/02/21 cyclobenzaprine 5 mg PO TID PRN 04/02/21 doxycycline hyclate 100 mg PO BID 04/02/21 methylphenidate HCl 20 mg PO DAILY 04/02/21 prednisone See Taper PO QODAY 04/02/21 pregabalin 100 mg PO BID 04/02/21 spironolactone 100 mg PO DAILY 04/02/21 ABG / Lab / Microbiology Data Result Diagrams: 04/03/21 08:33 04/03/21 08:33 Discharge Plan Admission Admit Date/Time: 04/02/21 12:29 Primary Reason for Your Visit: Wellbutrin overdose. Attending Provider: Siri Myers Primary Care Provider: Prakash Franklin Discharge Orders/Prescriptions Prescriptions: Continued spironolactone 25 mg Tablet 100 mg PO DAILY RF: 0 prednisone 10 mg Tablets,Dose Pack See Taper mg PO QODAY RF: 0 cyclobenzaprine 5 mg Tablet 5 mg PO TID PRN (Reason: Spasms) RF: 0 doxycycline hyclate 100 mg Capsule 100 mg PO BID RF: 0 methylphenidate HCl 20 mg Capsule,Er Biphasic 50-50 20 mg PO DAILY RF: 0 pregabalin 100 mg Capsule 100 mg PO BID RF: 0 albuterol 90 mcg/actuation Aerosol 180 mcg INHALATION Q6H PRN (Reason: Shortness Of Breath) RF: 0 Discontinued bupropion HCl [Wellbutrin XL] 150 mg Tablet Extended Release 24 Hr 150 mg PO DAILY RF: 0 Referrals / Follow Up: Prakash Franklin MD [Primary Care Provider] - Disposition Disposition (needs filled in before D/C Order can be placed): Psychiatric Hospital or Unit Charges/Coding Addendum Addendum: This patient was seen in conjunction with MADELYN Reno. I have independently interviewed and examined the patient and reviewed pertinent histor ical, laboratory, and other data. Please refer to MADELYN Reno's note for his patient's presentation, findings, and recommendations. I have reviewed and his note and concur with his documentation 21-year-old female who was brought in confused and shaking and found to have an empty bupropion bottle. Patient has a history of suicidal ideation. She stated that she did not want to hurt herself. She usually follows up with a counselor. She has history of schizophrenia according to the sister at bedside. Patient was admitted for medical management. She was improved. Serial EKG did not show prolonged QTC. There was no hyperthermia or hyperreflexia. Patient's hospital stay was significant for visual and auditory hallucination. She received Ativan as needed as well as Geodon. Patient was medically cleared and stable for discharge to acute psych facility On the day of discharge, patient was seen and examined. Physical Exam: Gen: Appears anxious, not pale, not jaundiced, actively hallucinating CVS:HS I +II, regular, no murmurs RESP: Diminished at lung bases GI: BS present and normal, soft, nontender, no palpable organs EXT:No edema Visit Charges Inpatient E&M: 92761 Disch Hosp
--- NOTE | 2021-04-03 15:39 | EKG12_ITS ---
Test Reason : Blood Pressure : / mmHG Vent. Rate : 127 BPM Atrial Rate : 127 BPM P-R Int : 136 ms QRS Dur : 070 ms QT Int : 316 ms P-R-T Axes : 052 046 016 degrees QTc Int : 459 ms Sinus tachycardia Nonspecific ST and T wave abnormality Abnormal ECG No previous ECGs available Confirmed by MAICO CAPONE, XAVIER ([id number]), editor dictionary MARLENY GAY ([id number]) on 04/06/2021 11:29:27 AM Referred By: RYLEE Confirmed By:XAVIER NINA MD
--- NOTE | 2021-04-03 16:24 | CM.ED ---
Addendum entered by Zulma Miramontes 04/03/21 20:36: Of note SW explained that the purpose of inpatient hospitalization is crisis stabilization and then mother could come to the facility, when stable, and then patient could receive treatment closer to parents. ROXANNE asked patient's mother why it was difficult to come to [place] and get treatment and mother said it's 6 hours away, my is taking care of our younger children and I have to work. SW advised that patient needs treatment and maybe sister could help and mother said I can't ask her to do that . SW initially referred to [facility] but they declined at the current level (but said that if her EKG was better they could accept) and so executive secretary social welfare made referral to [facility], [facility] and [facility] as the family wanted [place] or [place] as it would be closer. Zulma Miramontes FOOD SANITARIAN ALEKSANDR Original Note: SW note SW was advised by CM that patient's family do not want patient to go to [facility]. SW went into patient room and spoke to patient and patient's sister. Patient continued to be hallucinating. She reports I can't talk with 30 people in front of me. SW explained that there were 3 people. Patient's sister said that they did not want to go to [facility] as it was too far away and that they wanted patient to go to [place]. ROXANNE advised that due to the travel of patient in ambulance and the [place] the patient needed to go to facility in [place] and then could transfer to [place]. ROXANNE called patient's mom. ROXANNE attempted to speak to mother but she said that she was teaching a class and would need to call this telegraphic typewriter operator chief. ROXANNE spoke to patient's mother, Juvenal. She had called the unit and it was transferred to telegraphic typewriter operator chief. Juvenal said that she and her daughter had the right to go to [place] for treatment to be close to family. ROXANNE explained Application for Emergency Hospital admission. Juvenal asked where this is and ROXANNE said it is [place] Revised code. Juvenal said it says they may and ROXANNE advised that the MD wants to pink slip patient. Juvenal said that she has the right to refuse treatment and SW explained that the MD can determined that patient needs inpatient psych. ROXANNE explained that the concern is related to patient overdosing. ROXANNE explained that patient will need ambulance to transport and they can not take patient to [place]. Juvenal said I want to talk to the doctor.. I have asked that about 10 times. SW was told by staff that patient's sister asked for facility in [place] or [place]. SW spoke to [facility]asha[facility] Alejo. They requested current Qt's for patient so repeat EKG was ordered. SW spoke to Rashaun Alejo. They will review updated EKG with their MD but do not feel he will accept. SW made referral to [facility]. [facility] called and need the patient's SSN. ROXANNE made referral to [facility]. ROXANNE made referral to [facility]. SW received message from [facility]. They could accept patient. Accepting MD is Nereida. Patient is going to [address] [place] [address]. RN to RN [phone]. ROXANNE had tanya bellows charger assembler call and speak to Rony about patient's QRT and she updated him on patient's current status. SW received call from [facility]. They could accept but SW advised no placement needed. ROXANNE had difficulty faxing packet and SW went to PCU, MS2 to fax packet. SW then refaxed referral packet and SW went to ED and refaxed packet. ROXANNE also spoke to IS who said that there is no other answer beside faxing in packets. ROXANNE faxed pink slip to [facility] in [place]. Plan: [facility]. Ricarda, clerk secretary will schedule transport
--- NOTE | 2021-04-03 18:00 | NURSING ---
Report called tucker at [facility], no further questions voiced
--- NOTE | 2021-04-03 19:55 | CM.ED ---
Addendum entered by Zulma Miramontes 04/03/21 21:32: ROXANNE updated tractor driver teamster Sherine Ochoa. ROXANNE wrote name and address of facility on paper as well as name and contact information for [facility]. Zulma Miramontes OPERATIONS RESEARCH ENGINEER ALEKSANDR Original Note: ROXANNE Note Of note, SW had called patient's mother earlier today and she said that she was unable to talk as she was teaching. ROXANNE later called patient's mother and updated her regarding patient's care plan. Patient's mother continued to state, on phone, that patient needs to be with family and go to [place]. SW indicated that patient will get treatment locally and not in [place] but if patient's family want to take her from psychiatric facility to [place] they can when patient is discharged. Later in the afternoon staff advised that family wanted [place] or [place] for treatment. ROXANNE and EDITH Mccarthy went into patient's room. ROXANNE explained that patient was accepted at [facility]. ROXANNE advised transport is for 7pm. Patient's mother said that no one had called her to inquire about geotyping for patient's medication. Patient's mother, Juvenal, said that she was told that the CT is normal but that can't be or you guys had the wrong one as patient has malformation. Patient's mother, Juvenal said no one is communicating and asking about psychiatrist. ROXANNE advised that is not accurate as this public relations writer had updated the chart to include that information and when this public relations writer told that to Juvenal she said did you talk to the MD? .ROXANNE advised that it is documented and MD's review notes. Juvenal was advised that it is the responsiblity to provide patient with the most appropriate level of care and that is psychiatric as patient voiced suicidal ideation in the ED with OD and sister reported that patient has been suicidal for weeks. Mother reported that no one is communicating and that no one has talked to her except the PA today but this public relations writer advised her that this public relations writer spoke to her today and yesterday. Juvenal said that we are dumping her daughter and that she will speak to the ombudsman and wanted the name of the ombudsman and the contact number for [employer]. She then advised this public relations writer and RN to leave the room. Mother reports she wants the hospital child care center administrator. ROXANNE was documentating on another patient when a phone call was received by this public relations writer from [facility]. [facility] payroll manager said we were not told that this patient is incontent and a 2 person assist. medical laboratory manager stated that patient's mom had called her and said that is the level of care that patient requires and thus they could not take patient. ROXANNE referred intake to [facility] and they agreed to accept patient. ROXANNE spoke to hospital child care center administrator, Vikash, and he was present when [facility] called to decline patient but then accepted. He said that [facility] needs to be contacted and that patient then can be handed name of facility and address and name of [facility] when patient is leaving. ROXANNE spoke to evening RENATA who stated that mother is upset as she says that she is the POA. ROXANNE explained that the medical MD has made determination that patient needs inpatient psych. Zulma PETERS
--- NOTE | 2021-04-03 20:38 | NURSING ---
20:15 This nurse and sitter assisted patient to the toilet and patient did have a large amount of urinate yellow, clear, and no odor. Assisted patient back to bed and resting in bed nonlabored breathing. Mother and sitter in room.
--- NOTE | 2021-04-03 20:49 | NURSING ---
This nurse given mother the information to the facility that daughter has been discharge to and the a person to file a complaint about the hospital. Patient was sent with crocs and eyeglasses given to transportation
--- NOTE | 2021-04-06 17:48 | CM.ED ---
Late Entry for Patient. Of note during the day 04/03 the patient's mother, Juvenal, called in and spoke to EDITH Sevilla. Roel advised her to speak to social sciences instructor and she declined to speak to this leader writer. [facility] had called on 04/03 and stated that they could accept later when when QT's are reviewed. However, at that time patient had been accepted at [facility] Also of note, On 04/03/21 ROXANNE received a call from [facility]. Aisha said that [facility] did not tell them that patient was a 2 man assist and incontinent. Aisha said that patient's mother called them and advised of this behavior. ROXANNE referred [facility] to the RN who was caring for patient (and had given patient report to AISHA RN) and advised that patient had been given Geodon earlier and needed assistance in the vocational auto body instructor. Aisha then agreed to accept patient. ROXANNE left the PCU unit as the [facility] was there when patient was discharged. Zulma BRANDON
== END 2021-04-03 20:35 | DRG 917 ==
LOC: ED 12:09 → PCU 12:49
PROVIDERS: Admitting Provider Internal Medicine; Emergency Provider Emergency Medicine; PCP Pediatrics; Visit Provider Internal Medicine
DX: T43.291A Poisoning by other antidepressants, accidental (unintentional), initial encounter (principal); G92.8 Other toxic encephalopathy; Y92.214 College as the place of occurrence of the external cause; R00.0 Tachycardia, unspecified; F32.A Depression, unspecified; F41.9 Anxiety disorder, unspecified; G43.909 Migraine, unspecified, not intractable, without status migrainosus; Z79.899 Other long term (current) drug therapy
CPT/HCPCS: 36415; 70450; 80048; 80053; 80076; 80307; 81001; 82077; 83735; 84703; 85025; 87426; 93005; 97802; 99285; J7030; A4216

== ENCOUNTER → 2022-02-09 | Outpatient (CLI) | payer BC, SELFPAY ==
[2022-02-09 10:19] LABS: D-Dimer Quantitative (DVT/PE) 0.37 FEU/ug/m (0.27-0.49); Hematocrit 44.4 % (37-47); Hemoglobin 14.6 g/dL (12.0-15.0); Mean Corp Hgb Conc 32.9 g/dL (32-36); Mean Corpuscular Volume 91.4 fL (81-99); Mean Platelet Vol. 11.6 fl (6.2-12.0); Platelet Count 380 K/mm3 (150-450); RBC Distribution Width CV 13.2 % (11.6-14.6); RBC Distribution Width SD 43.9 fl (35.1-43.9); Red Blood Count 4.86 M/mm3 (4.2-5.4)
[2022-02-09 10:49] LABS: ALB/GLOB Ratio 0.9 RATIO (0.9-2.4); AST(SGOT) 22 U/L (15-37); Alanine Aminotransfer ALT/SGPT 36 U/L (13-56); Albumin, Serum 3.6 g/dL (3.2-5.0); Alkaline Phosphatase 82 U/L (45-117); Anion Gap 5 (5-15); BUN 11 mg/dL (7-18); BUN/Creat Ratio 14.5 RATIO (10-20); Calcium,Total 9.4 mg/dL (8.5-10.1); Chloride 103 mmol/L (98-107); Creatinine, Serum 0.76 mg/dL (0.55-1.02); EST Glomerular Filtration Rate 101 mL/min (>60); Est Glom Filt Rate - Afr Amer 122 mL/min (>60); Globulin 3.8 g/dL (2.2-4.2); Glucose 90 mg/dL (74-106); Potassium 3.9 mmol/L (3.5-5.1); Protein, Total 7.4 g/dL (6.4-8.2); Sodium Level 140 mmol/L (136-145); Thyroid Stim Hormone (TSH) 1.79 uIU/mL (0.358-3.74)
== END | disposition home or self-care (01) ==
PROVIDERS: Referring Provider Physician Assistant; Visit Provider Physician Assistant
DX: R05.9 Cough, unspecified (principal); R53.83 Other fatigue; U09.9 Post COVID-19 condition, unspecified
CPT/HCPCS: 36415; 80053; 84443; 85027; 85379

== ENCOUNTER 2022-06-30 11:45 | Emergency (ER) | payer BC, SELFPAY ==
[2022-06-30 11:45] VITALS: BP 134/98; PULSE 121; RESP 16; TEMP 36.4; O2SAT 98; BMI 24.3
--- NOTE | 2022-06-30 11:47 | EKG12_ITS ---
Test Reason : CP Blood Pressure : / mmHG Vent. Rate : 107 BPM Atrial Rate : 107 BPM P-R Int : 112 ms QRS Dur : 064 ms QT Int : 330 ms P-R-T Axes : 060 063 040 degrees QTc Int : 440 ms Sinus tachycardia Possible Left atrial enlargement Borderline ECG Confirmed by MAICO CAPONE, XAVIER ([id number]), dictionary editor MARLENY GAY ([id number]) on 07/01/2022 9:45:47 AM Referred By: Confirmed By:XAVIER NINA MD
--- NOTE | 2022-06-30 12:00 | RAD_ITS ---
STUDY: X-RAY CHEST REASON FOR EXAM: Female, 22 years old. CP TECHNIQUE: Single AP portable view of the chest. COMPARISON: None. FINDINGS: The lungs are clear and expanded. There is no demonstrated pleural abnormality. Normal size heart. Normal mediastinum and leana. Normal visualized pulmonary arteries. Normal visualized aortic arch and descending thoracic aorta. Normal visualized thoracic spine. Normal visualized ribs, clavicles, and shoulders. There is no demonstrated abnormality of the visualized soft tissue structures of the upper abdomen. RAD/Chest 1 View (Portable) IMPRESSION: Normal x-ray examination of the chest. Electronically Signed: Ifeanyi Wallace MD at 12:15 EST ,
[2022-06-30 13:20] VITALS: BP 134/98; PULSE 121; RESP 16; TEMP 36.4; O2SAT 98
--- NOTE | 2022-06-30 13:52 | CM.ED ---
Social Work Note Referral Source: Case find Referral Reason: no PCP SW met with patient and introduced herself and role as [facility] Quilter Fixer. Patient in agreement to speak with SW. SW inquired about patient's insurance and current PCP. Patient states she is from [place] and only lives in [place] due to college. Patient further explained she plans to return to [place] and is almost done with school. Patient declined PCP list as she plans to continue care with PCP in [place] when she moves back. No other needs voiced; SW remains available if needs arise. Mary Jones IT OPERATIONS MANAGER, FRAN
[2022-06-30 13:54] LABS: Absolute Lymphocyte Count 1.51 X10^3/uL (0.83-4.51); Absolute Neutrophil Count 6.4 X10^3/uL (2.0-7.7); Basophil# 0.04 X10^3/uL; Basophil% 0.5 % (0-1); Eosinophils% 1.1 % (0-5); Hematocrit 39.7 % (37-47); Hemoglobin 13.7 g/dL (12.0-15.0); Lymphocyte # 1.51 X10^3/ul (0.83-4.51); Mean Corp Hgb Conc 34.5 g/dL (32-36); Mean Corpuscular Volume 89.8 fL (81-99); Mean Platelet Vol. 10.9 fl (6.2-12.0); Monocyte# 0.75 X10^3/uL; Monocyte% 8.5 % (0-10); NRBC Flagged by Analyzer 0 % (0-5); Neutrophil # 6.44 X10^3/uL (2.7-7.7); Neutrophil % 72.7 % (47-70); Platelet Count 333 K/mm3 (150-450); RBC Distribution Width SD 42.4 fl (35.1-43.9); Red Blood Count 4.42 M/mm3 (4.2-5.4); White Blood Count 8.9 K/mm3 (4.4-11.0)
--- NOTE | 2022-06-30 13:57 | EDS_ITS ---
HPI History of Present Illness Chief Complaint: Chest Other Informant: patient Onset/Context/Timing Onset: Today Activity at onset: sudden Timing: Continuous Location: Substernal and Right Parasternal Worsened By: Movement of Torso and Breathing Relieved By: Rest Associated Symptoms: Negative for Nausea, Vomiting, Diaphoresis, Dyspnea, Cough, Fever, Lightheadedness, Acid Reflux or Palpitations Narrative Narrative: Patient presents with chest pain that began today. Patient states she woke up with it. Patient states it comes and goes. Patient states it is sharp. Patient states the pain is over the substernal area and radiates to the right parasternal area and right shoulder. Patient states it is worse with deep breathing and with certain movements. Patient states it is better with not moving. Patient denies any nausea or vomiting. Patient denies any diaphoresis. Patient denies any shortness of breath or cough. Patient denies any lightheadedness. Patient denies any cardiac or PE risk factors. CVD Risk Factors: Negative for Hypertension, Diabetes, Hypercholesterolemia, Family History 1' </=55 or Smoking PE Risk Factors: Negative for Recent Travel/Surgery, Recent Immobilization, Prior DVT or PE, Cancer or OCP + Smoking + >/=35 PFSH PFSH Medical History Anxiety Back pain Depression Mental health problem Migraine Neuropathy Overdose Syrinx of spinal cord Home Medications cyclobenzaprine 5 mg tablet 5 mg PO TID PRN Spasms 04/02/21 [History Last Taken Unknown] pregabalin 100 mg capsule 100 mg PO BID 04/02/21 [History Last Taken Unknown] spironolactone 25 mg tablet 100 mg PO DAILY 04/02/21 [History Last Taken U nknown] bupropion HCl 150 mg 24 hr tablet, extended release 150 mg PO DAILY 06/30/22 [History Last Taken Unknown] desvenlafaxine succinate 50 mg tablet,extended release 24 hr 50 mg PO DAILY 06/30/22 [History Last Taken Unknown] Allergy/AdvReac Type Severity Reaction Status Date / Time No Known Allergies Allergy Verified 04/02/21 10:47 Family History (Updated 04/02/21 @ 15:34 by Sj JOSHI) Father No problems noted. Mother No problems noted. Social History Smoking Status: Never smoker alcohol intake: current alcohol intake frequency: a few times a week Alcohol type: wine and hard liquor substance use type: does not use ROS ROS ED Constitutional Constitutional ED: Denies chills or fever(s) Eyes Eyes: Denies blurry vision or change in vision ENT ENT ED: Reports rhinorrhea; Denies sore throat Cardiovascular Cardiovascular: Reports chest pain; Denies palpitations Respiratory/Chest Respiratory/Chest: Denies cough or dyspnea Gastrointestinal Gastrointestinal: Denies nausea or vomiting Genitourinary Genitourinary ED: Reports urinary frequency; Denies dysuria or hematuria Musculoskeletal Musculoskeletal: Reports back pain; Denies neck pain Integumentary Denies abscess or rash Neurologic Neurologic: Reports headache(s); Denies weakness Allergic/Immunologic Allergic/Immunologic ED: Denies mouth swelling or urticaria EXAM Physical Exam Const Vital Signs: 06/30/22 11:45 06/30/22 13:20 06/30/22 13:20 Temperature 97.6 F L 97.6 F L Temperature Source Temporal Temporal Pulse Rate 121 H 121 H Respiratory Rate 16 16 Respiratory Effort Normal Non-Labored Blood Pressure 134/98 H 134/98 H Blood Pressure Mean 110 110 Pulse Ox 98 98 Oxygen Delivery Method Room Air Room Air 06/30/22 14:27 Temperature Temperature Source Pulse Rate 90 Respiratory Rate 15 Respiratory Effort Blood Pressure Blood Pressure Mean Pulse Ox 96 Oxygen Delivery Method Room Air Positive well nourished and well developed General Appearance ED: well developed HEENT Reports moist mucous membranes Neck supple and no JVD Resp normal respiratory effort and clear to auscultation bilaterally Cardio regular rhythm Rate: tachycardic GI normal to inspection, nondistended, normoactive bowel sounds and non-tender Palpation: soft Extremity normal to inspection General Extremety ED: Negative for edema or tenderness General Extremity: Negative for edema Neuro oriented x3, CN's II-XII intact bilaterally and no sensory deficits noted Sensorium / Orientation: awake and alert Motor Exam: strength 5/5 throughout Psych mental status grossly normal Skin no rashes or lesions noted Heart Score History: Slightly/Non-Suspicious ECG: Normal Age: </= 45 years Risk Factors: No Risk Factors Troponin: </= Normal Limit Score: 0 MDM MDM MDM Narrative Medical decision making narrative: Differential diagnosis includes pulmonary embolism, cardiac ischemia, pneumonia, pneumothorax, musculoskeletal etiology. CBC will be obtained to assess for leukocytosis and anemia. Basic metabolic profile will be obtained to assess for electrolyte abnormality and renal function. High-sensitivity troponin will be obtained to assess for cardiac ischemia. D-dimer will be obtained to assess for pulmonary embolism. EKG will be obtained to assess for cardiac ischemia. Chest x-ray will be obtained to assess for pneumonia and pneumothorax. Lab Data Attestation: I reviewed the patient's lab results. Lab results narrative: CBC was reviewed and was within normal limits. Patient metabolic profile was reviewed and was within normal limits. High-sensitivity troponin was reviewed and was normal at less than 3. D-dimer was repeated and was normal at less than 0.27. Labs: Laboratory Results - last 24 hr 06/30/22 06/30/22 06/30/22 13:45 13:45 13:45 WBC 8.9 RBC 4.42 Hgb 13.7 Hct 39.7 MCV 89.8 MCH 31.0 MCHC 34.5 RDW Std Deviation 42.4 RDW Coeff of [place] 13.0 Plt Count 333 MPV 10.9 Immature Gran % (Auto) 0.200 Neut % (Auto) 72.7 H Lymph % (Auto) 17.0 L [place] % (Auto) 8.5 Eos % (Auto) 1.1 Baso % (Auto) 0.5 Absolute Neuts (auto) 6.4 Absolute Lymphs (auto) 1.51 Nucleated RBC % 0 D-Dimer Quant (PE/DVT) < 0.27 L Sodium 139 Potassium 4.1 Chloride 104 Carbon Dioxide 28.0 Anion Gap 7 BUN 7 Creatinine 0.81 Estim Creat Clear Calc 109.90 Est GFR (MDRD) Af Amer 113 Est GFR (MDRD) Non-Af 93 BUN/Creatinine Ratio 8.6 L Glucose 91 Calcium 9.1 Troponin I High Sens < 3 L Radiography Diagnostic Testing: Clinical Impression(s) from Imaging Studies Chest X-Ray 06/30/22 12:00 IMPRESSION: Normal x-ray examination of the chest. Electronically Signed: Ifeanyi Wallace MD at 12:15 EST , EKG Initial EKG: Attestation: I personally reviewed and interpreted this EKG as follows: Interpretation: No Acute Injury Pattern and Sinus Tachycardia (107) Comments: EKG was obtained. On my interpretation, it showed a sinus tach ycardia with a rate of 107. HI interval, QRS interval, and QTc intervals were all normal. [place] was normal. There are no acute ST or T wave changes. Prior EKG tracings: available for review Prior: Unchanged (05/03/2021) Treatment and Re-Evaluation Narrative: Patient is feeling better on reevaluation. Patient was advised of her findings. Patient's heart rate improved to 90. Patient has a HEART score of 0. Patient was advised that this is low risk for acute cardiac event. Patient was instructed to follow-up with her primary care physician in 5 to 7 days. Patient was instructed return if worse in any way. Patient understood and was agreeable with the plan. All questions were answered. Discharge Plan Triage Chief Complaint: Chest Other ED Provider: Troy Garcia Dx/Rx/DC Orders Clinical Impression: Chest pain of uncertain etiology, Tachycardia Instructions: ED Chest Pain, Uncertain Cause Prescriptions: No Action spironolactone 25 mg Tablet 100 mg PO DAILY cyclobenzaprine 5 mg Tablet 5 mg PO TID PRN (Reason: Spasms) pregabalin 100 mg Capsule 100 mg PO BID bupropion HCl 150 mg tablet extended release 24 hr 150 mg PO DAILY desvenlafaxine succinate 50 mg tablet extended release 24 hr 50 mg PO DAILY Primary Care Provider: Care Physician,No Primary Referrals: Tiffanie Barragan MD [Med Staff - Systems Software Manager] - 5-7 Days Care Physician,No Primary [Primary Care Provider] - Disposition Disposition: Home, Self Care
[2022-06-30 14:11] LABS: D-Dimer Quantitative (DVT/PE) < 0.27 FEU/ug/m (0.27-0.49)
[2022-06-30 14:12] LABS: Anion Gap 7 (5-15); BUN 7 mg/dL (7-18); BUN/Creat Ratio 8.6 RATIO (10-20); Calcium,Total 9.1 mg/dL (8.5-10.1); Chloride 104 mmol/L (98-107); Creatinine, Serum 0.81 mg/dL (0.55-1.02); EST Glomerular Filtration Rate 93 mL/min (>60); Est Glom Filt Rate - Afr Amer 113 mL/min (>60); Glucose 91 mg/dL (74-106); Potassium 4.1 mmol/L (3.5-5.1); Sodium Level 139 mmol/L (136-145); Troponin-I HS < 3 pg/mL (3.0-54.0)
[2022-06-30 14:27] VITALS: PULSE 90; RESP 15; O2SAT 96
[2022-06-30 15:32] VITALS: PULSE 89; RESP 16; O2SAT 98
== END 2022-06-30 15:34 | disposition home or self-care (01) ==
PROVIDERS: Emergency Provider Emergency Medicine; Visit Provider Emergency Medicine
DX: R07.2 Precordial pain (principal); R00.0 Tachycardia, unspecified; R35.0 Frequency of micturition; Z79.899 Other long term (current) drug therapy
CPT/HCPCS: 71045; 80048; 84484; 85025; 85379; 93005; 99283; A4216